=== PATIENT | female | born 1935 ===

== ENCOUNTER 2019-06-19 17:01 | Emergency (ER) | payer MEDICAID ==
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
[2019-06-19 18:22] LABS: Basophils % (Auto) 0.5 % (0.0-1.8); Eosinophils % (Auto) 0.6 % (0.0-4.3); Hematocrit 42.6 % (30.3-42.9); Hemoglobin 14.4 gm/dl (10.1-14.3); Lymphocytes # (Auto) 1.5 K/mm3 (1.2-5.4); Lymphocytes % (Auto) 27.3 % (13.4-35.0); Mean Corpuscular HGB Conc 34 % (30-34); Mean Corpuscular Volume 91 fl (79-97); Monocytes # (Auto) 0.4 K/mm3 (0.0-0.8); Monocytes % (Auto) 7.2 % (0.0-7.3); Platelet Count 214 K/mm3 (140-440); Red Blood Count 4.67 M/mm3 (3.65-5.03); Red Cell Distribution Width 13.7 % (13.2-15.2)
--- NOTE | 2019-06-19 18:39 | Cat Scan Report ---
CT head without contrast CLINICAL HISTORY: Headache, dizziness. FINDINGS: No previous exams available for comparison. There are scattered foci of decreased attenuati on involving the cerebral white matter most consistent with microvascular angiopathy. There is also m ild cerebral atrophy. The ventricular system is correspondingly appropriate in size and configuration . There is no clear CT evidence of acute intracranial hemorrhage or significant mass effect. The visu alized paranasal sinuses are clear. All CT scans at this location are performed using the CT dose red uction for [place] by means of automated exposure control. 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 Signer Name: Hu Tolbert MD Signed: 06/19/2019 6:34 PM Workstation Name: [id number]
[2019-06-19 19:09] LABS: Alanine Aminotransferase 16 units/L (7-56); Albumin 4.1 g/dL (3.9-5); BUN/Creatinine Ratio 21; Blood Urea Nitrogen 17 mg/dL (7-17); Hemolysis Index 12
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
[2019-06-19 21:34] VITALS: BP 134/61
== END 2019-06-19 21:54 | disposition home or self-care (01) ==
LOC: ED 17:01
DX: F41.9 Anxiety disorder, unspecified (principal); Z88.0 Allergy status to penicillin; Z88.2 Allergy status to sulfonamides
CPT/HCPCS: 36415; 70450; 80053; 83735; 84100; 84443; 84484; 85025; 93005; 93010